=== PATIENT | female | born 2000 | race Caucasian/White ===

== ENCOUNTER 2020-12-12 00:41 | Emergency (ER) | payer OTHER ==
[~2020-12-12] VITALS: Ht 182.9 cm; Wt 76.7 kg
[2020-12-12 00:50] VITALS: BP 119/69
[2020-12-12 01:18] LABS: EOSINOPHILS # (AUTO) 0.1 K/uL (0-0.4); EOSINOPHILS % (AUTO) 0.7 % (0.0-4.0); HEMATOCRIT 42.8 % (36-48); HEMOGLOBIN 14.5 g/dL (12.0-16.0); LYMPHOCYTES # (AUTO) 0.6 K/uL (2.5-16.5); LYMPHOCYTES % (AUTO) 5.3 % (20.5-51.1); MEAN CORPUSCULAR HEMOGLOBIN 32 pg (27-31); MEAN CORPUSCULAR HGB CONC 34 g/dL (33-37); MONOCYTES # (AUTO) 0.4 K/uL (0.8-1.0); MONOCYTES % (AUTO) 3.7 % (1.7-9.3); NEUTROPHILS # (AUTO) 9.7 K/uL (1.8-7.7); NEUTROPHILS % (AUTO) 90.3 % (42.2-75.2); PLATELET COUNT (AUTO) 287 K/uL (140-450); RED BLOOD CELL COUNT(AUTO) 4.56 MIL/uL (4.20-5.40); WHITE BLOOD COUNT (AUTO) 10.7 K/uL (4.8-10.8)
[2020-12-12 01:30] LABS: APPEARANCE,URINE HAZY (CLEAR); BILIRUBIN,URINE 2+ (NEGATIVE); BLOOD, URINE 3+ (NEGATIVE); COLOR,URINE YELLOW (YELLOW); LEUKOCYTE ESTERASE ,URINE NEGATIVE (NEGATIVE); NITRITE, URINE NEGATIVE (NEGATIVE); PH,URINE 5.5 (5.0-9.0); UGLUCOSE NEGATIVE (NEGATIVE)
[2020-12-12 01:36] LABS: ALBUMIN 4.9 g/dL (3.4-5.0); ANION GAP 15.3 (8-16); CARBON DIOXIDE 22.5 mmol/L (21-32); CREATININE 0.8 mg/dL (0.6-1.3); POTASSIUM 3.8 mmol/L (3.5-5.1); TOTAL BILIRUBIN 0.7 mg/dL (0.0-1.0)
[2020-12-12 01:40] LABS: RBC,URINE 0-5 /HPF (0-5); WBC,URINE 0-5 /HPF (0-5)
--- NOTE | 2020-12-12 01:46 | NUR ---
pt ambulated to bed #10
[2020-12-12 01:50] VITALS: BP 119/69
--- NOTE | 2020-12-12 01:50 | NUR ---
covering primary rn for lunch relief. see complete assessment
[2020-12-12] MEDS ORDERED: NACL 0.9% 1,000 ML IV ONE ×2 (02:20→02:30)
[2020-12-12] MEDS ORDERED: cefTRIAXone 1,000 MG VIAL ONE (02:24)
--- NOTE | 2020-12-12 02:31 | NUR ---
ERMD AT BEDSIDE.
[2020-12-12] MEDS ORDERED: ONDANSETRON 4 MG/2 ML VIAL IVP ONE (02:35)
--- NOTE | 2020-12-12 03:35 | NUR ---
PT AMBULATED TO RESTROOM WITH STEADY GAIT.
--- NOTE | 2020-12-12 04:18 | NUR ---
PT REPORTS "FEELING BETTER" AND REQUESTS " CAN YOU JUST TAKE MY IV OUT?". ERMD MADE AWARE AND AGREES TO DISCONTINUE IV AND DISCHARGE PT HOME.
[2020-12-12] MEDS ORDERED: CEPH-588 PO (04:19)
--- NOTE | 2020-12-12 04:20 | NUR ---
IV removed, catheter intact and site benign. Applied folded 4x4 gauze and tape to stop bleeding.
== END 2020-12-12 04:25 | disposition home or self-care (01) ==
LOC: MED 00:41
DX: N39.0 Urinary tract infection, site not specified (principal); R11.2 Nausea with vomiting, unspecified; R19.7 Diarrhea, unspecified; R51.9 Headache, unspecified; Z79.899 Other long term (current) drug therapy
CPT/HCPCS: 36415; 80053; 81001; 81025; 82150; 83690; 85025; 87086; 96365; 96375; 99284; J0696; J2405; J7030